=== PATIENT | male | born 1950 | race Caucasian/White ===

== ENCOUNTER 2024-09-25 08:53 | Emergency (ER) | payer OTHER, SELFPAY ==
[2024-09-25 08:54] VITALS: BP 132/69
[2024-09-25 09:41] VITALS: BMI 23.5
[2024-09-25 10:05] LABS: Urine Albumin Trace (Neg - Trace); Urine Bilirubin Negative (Negative); Urine Character Clear (Clear); Urine Color Yellow; Urine Glucose Negative (Negative); Urine Ketone 1+ (Negative); Urine Leukocyte 2+ (Negative); Urine Nitrite Negative (Negative); Urine Occult Blood 3+ (Negative); Urine Urobilinogen Negative (Neg - 1+)
--- NOTE | 2024-09-25 10:26 | ED.GENMED ---
History of Present Illness
<Aviva Becker MD, Resident - Last Filed: 09/25/24 16:24>
General
Chief Complaint: Urinary Symptoms
Time Seen by Provider: 09/25/24 09:54
History of Present Illness
History of Present Illness:
Patient 75-year-old male with past medical history of ventricular tachycardia and hypercholesterolemia presenting to the ED with dysuria and fever. Patient notes symptoms started 2 days ago, has had trouble sleeping with urinary frequency, urgency,
and dysuria. Also notes fever and chills. Denies flank/abdominal pain, change in color/ blood in urine, diarrhea, nausea, vomiting. Pt has a history of UTI 3 years ago. Notes had a temperature of 100.5 F this AM and took tylenol. No recent
antibiotic use.
Past History
<Aviva Becker MD, Resident - Last Filed: 09/25/24 16:24>
Past History
ED Past Medical History: Hypercholesterolemia and Other (Ventricular tachycardia)
ED Past Surgical History: Orthopedic (Left hip replacement) and Other (Bilateral hernia repair)
Review of Systems
<Aviva Becker MD, Resident - Last Filed: 09/25/24 16:24>
Review of Systems
Constitutional: Reports no symptoms
EENT: Reports no symptoms
Respiratory: Reports no symptoms
Cardiac: Reports no symptoms
ABD/GI: Reports no symptoms
: Reports dysuria, frequency and urgency
Musculoskeletal: Reports no symptoms
Skin: Reports no symptoms
Neurological: Reports no symptoms
Endocrine: Reports no symptoms
Hematologic/Lymphatic: Reports no symptoms
Psychiatric: Reports no symptoms
Phy Exam
<Aviva Becker MD, Resident - Last Filed: 09/25/24 16:24>
Physical Exam
Physical Exam:
GENERAL: Alert, in no apparent distress
EYE: pupils equal and reactive
NECK: Supple, no significant adenopathy.
ENT: o/p clr, mmm.
CARDIAC: Regular rate and rhythm.
LUNGS: Clear breath sounds bilaterally, no acute respiratory distress, no wheezes/rales/rhonchi
ABDOMEN: Soft, without focal tenderness, no r/g, no cvat
NEUROLOGICAL: Alert and oriented, no focal neuro deficits
SKIN: Warm and dry, skin intact.
MUSCULOSKELETAL: No edema, well perfused.
PSYCH: Normal and appropriate interaction.
Course
<Aviva Becker MD, Resident - Last Filed: 09/25/24 16:24>
Orders/Labs/Results
Orders:
Orders
09/25/24 09:44
Urinalysis Reflex To Culture Urgent
Date Specimen was Collected: 09/25/24
Time Specimen was Collected: 09:43
Urine Microscopic Reflex Cult Urgent
Urine Culture Urgent
TOBIAS Source: U
Specimen Description:
Date Specimen was Collected: 09/25/24
Time Specimen was Collected: 09:43
09/25/24 10:36
Sulfamethox./Trimethoprim Ds [Bactrim Ds 800 mg/160 mg] 1 tablet PO NOW STA
Abnormal Lab Results
09/25/24
09:44
Urine Ketones 1+ A
(Negative)
Ur Occult Blood Reflex 3+ A
(Negative)
Leukocyte Esterase Rfl 2+ A
(Negative)
Urine RBC 3-6 A /HPF
(0-2)
Urine WBC (Reflex) >100 A /HPF
(0-5)
Urine Bacteria (Reflex) Moderate A
(Negative)
Vital Signs
Initial and Last Documented VS:
Initial Vital Signs
Temp Pulse Resp BP Pulse Ox
98.3 F 89 16 132/69 98
09/25/24 08:54 09/25/24 08:54 09/25/24 08:54 09/25/24 08:54 09/25/24 08:54
Last Documented Vital Signs
Temp Pulse Resp BP Pulse Ox
98.3 F 70 18 128/80 99
09/25/24 08:54 09/25/24 11:30 09/25/24 11:30 09/25/24 11:30 09/25/24 11:30
<Lev Holder, DO - Last Filed: 09/25/24 10:35>
Orders/Labs/Results
Orders:
Orders
09/25/24 09:44
Urinalysis Reflex To Culture Urgent
Date Specimen was Collected: 09/25/24
Time Specimen was Collected: 09:43
Urine Microscopic Reflex Cult Urgent
Urine Culture Urgent
TOBIAS Source: U
Specimen Description:
Date Specimen was Collected: 09/25/24
Time Specimen was Collected: 09:43
09/25/24 10:36
Sulfamethox./Trimethoprim Ds [Bactrim Ds 800 mg/160 mg] 1 tablet PO NOW STA
Abnormal Lab Results
09/25/24
09:44
Urine Ketones 1+ A
(Negative)
Ur Occult Blood Reflex 3+ A
(Negative)
Leukocyte Esterase Rfl 2+ A
(Negative)
Urine RBC 3-6 A /HPF
(0-2)
Urine WBC (Reflex) >100 A /HPF
(0-5)
Urine Bacteria (Reflex) Moderate A
(Negative)
Vital Signs
Initial and Last Documented VS:
Initial Vital Signs
Temp Pulse Resp BP Pulse Ox
98.3 F 89 16 132/69 98
09/25/24 08:54 09/25/24 08:54 09/25/24 08:54 09/25/24 08:54 09/25/24 08:54
Last Documented Vital Signs
Temp Pulse Resp BP Pulse Ox
98.3 F 70 18 128/80 99
09/25/24 08:54 09/25/24 11:30 09/25/24 11:30 09/25/24 11:30 09/25/24 11:30
<Aviva Becker MD, Resident - Last Filed: 09/25/24 16:24>
MDM/Problems Addressed
Differential Diagnosis Includes:
Cystitis
Prostitis
Nephrolithiasis
Pyelonephritis
MDM/Problems Addressed:
- U/A, U/C
<Aviva Becker MD, Resident - Last Filed: 09/25/24 16:24>
*Critical Care Note
Total Time (30-74mins, 75-104mins- exclusive of procedures): Not Applicable
ED Attending Note
<Aviva Becker MD, Resident - Last Filed: 09/25/24 16:24>
-
Portions of this chart may have been created with voice recognition software.� Occasional wrong word or��sound alike� substitutions may have occurred due to the inherent limitations of voice recognition software.
<Lev Holder, DO - Last Filed: 09/25/24 10:35>
ED Attending Note
Patient seen and examined by attending physician: Yes
I performed a history and physical exam of patient and discussed management with resident, I reviewed resident's note and agree with documented findings and plan of care.: Yes
ED Attending Note:
I have reviewed and agree with history plan by Aviva Boss MD. My exam reveals 34-year-old male no acute distress. Abdomen exam benign. Do not suspect appendicitis or diverticulitis. Urinalysis consistent with UTI. Treat with Bactrim.
Follow-up with urology.
Discharge Plan
Departure
Patient Disposition: Home (Routine Discharge)
Date of Disposition: 09/25/24
Time of Disposition: 11:15
Patient with high blood pressure during this ER visit?: No
Condition: Good
Discharge Problem:
Acute cystitis
Instructions: Urinary Tract Infection, Adult (DC)
Prescriptions:
New
sulfamethoxazole-trimethoprim [Bactrim DS] 800-160 mg tablet
1 tab PO BID Qty: 13 0RF
Referrals:
Amador Lennon MD [Active] -
Lo Salazar DO [Family Provider] -
Activity Restrictions/Additional Instructions:
You should follow up with a urologist after completion of your antibiotics.
Interventions
Interventions:
*Risk Screen - Suicide Last Done: 09/25/24 08:59
*Neglect/Abuse Screening Last Done: 09/25/24 08:59
*Nursing Disposition Last Done: 09/25/24 11:31
ED-Male Genitourinary Assessment Last Done: 09/25/24 09:57
Discharge Date and Time
Discharge Date/Time: 09/25/24 11:31
Print Language: EGYPTIAN
[2024-09-25 10:52] LABS: Urine Squamous Cell 0-2 /LPF (Few)
[2024-09-25 10:54] LABS: Urine White Cell >100 /HPF (0-5)
[2024-09-25 10:59] LABS: Urine Bacteria Moderate (Negative)
[2024-09-25] MEDS: BACTRIM DS 800 MG/160 MG 1 TABLET PO (11:03)
[2024-09-25 11:30] VITALS: BP 128/80
== END 2024-09-25 11:31 | disposition home or self-care (01) ==
LOC: EMR 08:53
PROVIDERS: EMERGENCY PHYSICIAN Emergency Medicine; FAMILY PHYSICIAN Family Medicine
DX: N30.00 Acute cystitis without hematuria (principal); E78.00 Pure hypercholesterolemia, unspecified; Z87.440 Personal history of urinary (tract) infections
CPT/HCPCS: 99282; 81003; 81015; 87071; 87086; 87186